=== PATIENT | male | born 1990 | race Caucasian/White ===

== ENCOUNTER 2019-12-26 19:44 | Emergency (ER) | payer OTHER ==
[~2019-12-26] VITALS: Ht 175.3 cm; Wt 131.5 kg
[2019-12-26] MEDS ORDERED: AMOXICILLIN 50500 M1 PO (20:27)
[2019-12-26] MEDS ORDERED: NAPROSYN500 M1 PO (20:27)
[2019-12-26 20:38] VITALS: BP 135/70
== END 2019-12-26 20:39 | disposition home or self-care (01) ==
LOC: M.ERS 19:44
DX: K01.1 Impacted teeth (principal); K02.9 Dental caries, unspecified; E11.9 Type 2 diabetes mellitus without complications